=== PATIENT | female | born 1990 | race Caucasian/White ===

== ENCOUNTER 2023-02-03 09:28 | Emergency (ER) | payer BC, SELFPAY ==
[2023-02-03 10:15] VITALS: BP 142/85; PULSE 80; RESP 19; TEMP 36.8; O2SAT 98; BMI 31.5
--- NOTE | 2023-02-03 10:56 | EXP.UTC ---
Discharge Plan Disposition Patient Disposition: Home, Self-Care Condition: Good Prescriptions Prescriptions: No Action desvenlafaxine succinate [Pristiq] 100 mg tablet extended release 24 hr 100 mg PO DAILY Referrals Follow up/Referrals: Marcia Gardner APRN [Primary Care Provider] - See instructions Activity Restrictions/Add. Instructions Additional Instructions/Restrictions: *Monitor Temp, Over the counter Motrin or Tylenol as directed/as needed Tylenol every 4 hours and Motrin every 6 hours (as long as your family doctor has told you that you can take it) for fever or pain. and straight to ER if unable to lower temp less than 101.0 after medication given *Warm salt water gargles may help to soothe the throat *Throat Lozenges? *Warm fluids like tea with honey may help to soothe the throat? *Sleep elevated *Humidifier/Vaporizer Follow up IMMEDIATELY for new or worsening symptoms or no Noticeable improvement over the next 48-72 hours. 911 for difficulty breathing or swallowing You were tested for today for COVID19 your test result should be back in the next 24-48 hours, you may check your results on the [facility] [employer] [facility] Clinical Impressions Clinical Impression: Viral syndrome Stand Alone Forms Stand Alone Forms: Work/School Release Instructions Patient Instructions: DI for Viral Syndrome Discharge ED Provider: Juliet Bobby [facility] [place], [place] HPI General Stated complaint: headache,nausea,chills Mode of Arrival: Ambulatory Source of Information: Patient Limitations: No Limitations Time Seen by Provider: 02/03/23 10:56 Description of Symptoms (Recalled from Triage Doc. by RN): PATIENT REQUESTING COVID TEST, C/O BODY ACHES, HEADACHE, COUGH AND CONGESTION HEENT Symptoms (Recalled from RN notes): No Resp Symptoms (Recalled from RN notes): No Skin Symptoms (Recalled from RN notes): No MS Symptoms (Recalled from RN notes): No Functional Status (Recalled from RN notes): WNL History of Present Illness Provider Complaint: Patient states that she has been having fever, chills, body aches, cough and nasal congestion states that she wants to get tested for COVID States that she feels like she did when she had COVID Related Data Home Medications Medication Instructions Recorded Confirmed desvenlafaxine succinate 100 mg 100 mg PO DAILY Depression 02/03/23 02/03/23 tablet,extended release 24 hr (Pristiq) Allergies Allergy/AdvReac Type Severity Reaction Status Date / Time No Known Allergies Allergy Verified 07/25/22 08:44 Worker's Comp Is this a Worker's Comp case?: [facility] Dis[facility]: The information contained in this section may have been updated after the patient was seen, as this information can be updated by other users. Medical History (Updated 02/03/23 @ 11:01 by Juliet Bobby APRN) Recurrent major depression resistant to treatment Family History (Updated 03/17/22 @ 14:51 by Alpa Bella APRN) Mother FHx: mental illness Asthma Grandmother FHx: mental illness Hypertension Grandmother FHx: mental illness Social History (Updated 03/17/22 @ 14:39 by Alpa Bella APRN) Smoking Status: Former smoker quit date: 02/06/22 how long ago did patient quit smoking: she had COVID in February 2022; quit then second hand exposure: Yes (her boyfriend is a chain smoker) alcohol intake: never counseling given: No substance use type: denies use counseling given: No current occupational status: employed Travel in the last 8 weeks: None adopted: No caregiver/support person: No foster care: No household members: significant other housing: house marital status: single number of children: 1 number of grandchildren: 0 education level: high school service: No senior living: No current occupation: at [employer] H[employer] Recent Travel: No sexually active: Yes are you practicing safe sex: Yes caf
[2023-02-03 10:59] VITALS: BP 142/85; PULSE 80; RESP 19; TEMP 36.8; O2SAT 98
== END 2023-02-03 11:08 | disposition home or self-care (01) ==
PROVIDERS: Emergency Provider Nurse Practitioner; PCP Nurse Practitioner Family
DX: R50.9 Fever, unspecified (principal); R05.9 Cough, unspecified; B34.9 Viral infection, unspecified; F33.9 Major depressive disorder, recurrent, unspecified; Z87.891 Personal history of nicotine dependence
CPT/HCPCS: 99203; 99212; G0463